=== PATIENT | male | born 1980 | race Caucasian/White ===

== ENCOUNTER 2019-02-02 12:19 | Inpatient (IN) | payer OTHER ==
[2019-02-02] MEDS ORDERED: NS 0.9% 1000 ML** 1,000 ML IV ONE (12:24)
[2019-02-02] MEDS ORDERED: LORazepam INJ* 2 MG/ML 1 ML VIAL IV PUSH ONE (12:33)
[2019-02-02] MEDS ORDERED: Lorazepam PYXIS KEY PRN ×2 (12:33→15:40)
[2019-02-02] MEDS ORDERED: Lorazepam PYXIS KEY ONE (12:39)
--- NOTE | 2019-02-02 12:40 | ED ---
Substance Abuse/Use - HPI Summary HPI Summary: Patient is a 38 y/o M presenting to [facility] via EMS under 941 status for Benadryl overdose. It is reported that the patient ingested approximately 100-150 tablets of 25 mg Benadryl. Time of ingestion is unknown. Patient's friend had called 911. It is reported that the patient had been making suicidal statements to his friends last evening, 02/01/19. This morning, 02/02/19, the patient had messaged his friends a picture of a pile of Benadryl tablets and stated that he had taken the amount of tablets featured in the photo. Some alcohol usage is reported as well. EMS reports that the patient has not vomited. EMS BG was 109, BPs of 140s/80s, and HR of 130s. Home medications and allergies are reviewed. Patient is a level 5 caveat secondary to AMS. - History Of Current Complaint Stated Complaint: OVERDOSE Hx Obtained From: EMS Hx From Patient Unobtainable Due To: Altered Mental Status - Patient is a level 5 caveat secondary to AMS. Onset/Duration of Drug/ETOH Abuse: Hours Ingestion History: Type/Name Of Drug - Benadryl, alcohol, Amount Ingested - 100- 150 tablets of 25 mg Benadryl, Approximate Time Of Ingestion - unknown Overdose Characteristics: Oral Character: Other - decreased responsiveness Associated Signs And Symptoms: Altered Mental Status, Intentional Ingestion, Other: - SI - Allergies/Home Medications Allergies/Adverse Reactions: Allergies Allergy/AdvReac Type Severity Reaction Status Date / Time No Known Allergies Allergy Verified 10/21/12 09:42 Home Medications: Home Medications Unobtainable 02/02/19 [History Confirmed 02/02/19] PMH/Surg Hx/FS Hx/Imm Hx Sensory History: Reports: Hx Contacts or Glasses Denies: Hx Legally Blind, Hx Deafness Opthamlomology History: Reports: Hx Contacts or Glasses Denies: Hx Legally Blind EENT History: Denies: Hx Deafness Psychiatric History: Reports: Hx Substance Abuse Denies: Hx Eating Disorder, Hx of Violent Episodes Against Others Infectious Disease History: No Infectious Disease History: Denies: Traveled Outside the [place] in Last 30 Days - Family History Known Family History: Positive: Unknown - Patient is a level 5 caveat secondary to AMS. - Social History Alcohol Use: Weekly Alcohol Amount: 2-3/day Substance Use Type: Reports: Cocaine, Marijuana Smoking Status (MU): Light Every Day Tobacco Smoker Review of Systems - ROS Summary Review of Systems Summary: Patient is a level 5 caveat secondary to AMS. Constitutional: Other - positive - overdose, Benadryl and alcohol overdose Negative: Vomiting Neurological: Other - positive - AMS Psychological: Other - positive - SI All Other Systems Reviewed And Are Negative: No - Comments Additional Review of Systems Comments: Patient is a level 5 caveat secondary to AMS. Physical Exam - Summary Physical Exam Summary: Constitutional: Well-developed, Well-nourished, Alert. (-) Distressed Skin: Warm, Axilla are dry HENT: Normocephalic; Atraumatic Eyes: Wide-eyed gaze with right nystagmus, pupils are 5 mm, equal, and reactive ; conjunctiva are normal Neck: Musculoskeletal ROM normal neck. (-) JVD, (-) Stridor, (-) Tracheal deviation Cardio: Tachycardia, Heart sounds normal; Intact distal pulses; Radial pulses are 2+ and symmetric. (-) Murmur Pulmonary/Chest wall: Effort normal. (-) Respiratory distress, (-) Wheezes, (-) Rales Abd: Soft, (-) tenderness, (-) Distension, (-) Guarding, (-) Rebound Musculoskeletal: (-) Edema Lymph: (-) Cervical adenopathy Neuro: Patient has a garbled speech that is incomprehensible. He is responsive to questions and moves all extremities spontaneously, patient is a level 5 caveat secondary to AMS Triage Information Reviewed: Yes Vital Signs On Initial Exam: Initial Vitals Temp Pulse Resp BP Pulse Ox 98.6 F 135 17 150/93 96 02/02/19 12:21 02/02/19 12:21 02/02/19 12:21 02/02/19 12:21 02/02/19 12:21 Vital Signs Reviewed: Yes Completion Of Physical Exam Limited Due To: Altered Mental Status, Level 5 Procedures - Sedation Patient Received Moderate/Deep Sedation with Procedure: No Diagnostics - Vital Signs Vital Signs Temp Pulse Resp BP Pulse Ox 02/02/19 12:21 98.6 F 135 17 150/93 96 - Laboratory Result Diagrams: 02/02/19 12:36 02/02/19 12:36 Lab Statement: Any lab studies that have been ordered have been reviewed, and results considered in the medical decision making process. - EKG 1230 Cardiac Rate: Tachycardia - rate of 128 BPM EKG Rhythm: Sinus Tachycardia Summary of EKG Findings: EKG showed sinus tachycardia with rate of 128 BPM, QRS of 98, QTc of 467. No STEMI. ED physician has reviewed and interpreted this EKG. 1322 Cardiac Rate: Tachycardia - rate of 100 BPM EKG Rhythm: Sinus Tachycardia Summary of EKG Findings: EKG showed sinus tachycardia with rate of 100 BPM, QRS of 101, QTc of 485. ED physician has reviewed and interpreted this EKG. 1446 Cardiac Rate: Tachycardia - rate of 104 BPM EKG Rhythm: Sinus Tachycardia Summary of EKG Findings: EKG showed sinus tachycardia with rate of 104 BPM, QRS of 96, QTc of 477. ED physician has reviewed and interpreted this EKG. Re-Evaluation - Re-Evaluation First Eval Re-Evaluation Time: 12:30 Comment: Poison Control, Ruth [place], was contacted. Benzodiazepine and bicarb if QRS is greater than 100 recommended. Second Eval Re-Evaluation Time: 13:22 Comment: Second EKG showed QRS widening from 98 to 101. Bicarb to be given. Third Eval Re-Evaluation Time: 15:48 Comment: Poison control called back, they recommend BMP, fluids, and benzodiazepines if patient is restless. Course/Dx - Course Course Of Treatment: Patient is here with intentional overdose of Benadryl. Patient also endorses alcohol use. Patient is also altered upon arrival but does look at you and asking him questions and sometimes gives answers. Patient was tachycardic which improved with IV fluids and Ativan. Patient had initial QRS which was less than 100 but then creeped up so a amp of bicarbonate was given. Patient is monitored in the ED and his mental status. Patient is admitted to the ICU for further workup and monitoring. - Diagnoses Provider Diagnoses: Overdose or poisoning by antihistamine or antiemetic drug, Alcohol overdose, Suicide attempt - Physician Notifications Discussed Care Of Patient With: Isaiah Comer Time Discussed With Above Provider: 14:43 Instructed by Provider To: Other - Patient's case was discussed with Dr. Comer, ICU, Dr. Comer accepts for admission. - Critical Care Time Critical Care Time: 30-74 min - 35 minutes CCT Discharge ED - Sign-Out/Discharge Documenting (check all that apply): Patient Departure - admit - Discharge Plan Condition: Fair Disposition: ADMITTED TO [facility] - Billing Disposition and Condition Condition: FAIR Disposition: Admitted to [facility] - Attestation Statements Document Initiated by Suzette: Yes Documenting Scribe: ISI GOMEZ Provider For Whom Suzette is Documenting (Include Credential): BELKIS GOMEZ MD Scribe Attestation: ISI Pastrana, scribed for BELKIS GOMEZ MD on 02/02/19 at 1619. Scribe Documentation Reviewed: Yes Provider Attestation: The documentation as recorded by the [email or web address] zazueta accurately reflects the service I personally performed and the decisions made by me, BELKIS GOMEZ MD Status of Scribe Document: Viewed
[2019-02-02 12:59] LABS: ABS Basophils 0.1 10^3/ul (0-0.2); ABS Eosinophils 0.3 10^3/ul (0-0.6); ABS Lymphocytes 3.6 10^3/ul (1.0-4.8); ABS Monocytes 0.9 10^3/ul (0-0.8); ABS Neutrophils 8.2 10^3/ul (1.5-7.7); Eosinophil % 2.2 %; Hematocrit 43 % (42-52); Lymphocyte % 27.6 %; Mean Corpuscular HGB Conc 35 g/dL (31-36); Mean Corpuscular Hemoglobin 30 pg (27-31); Mean Corpuscular Volume 87 fL (80-94); Mean Platelet Volume 7.1 fL (7.4-10.4); Platelet Count 293 10^3/uL (150-450); Red Blood Count 4.95 10^6 /uL (4.18-5.48); Red Cell Distribution Width 13 % (10-15); White Blood Count 13.1 10^3/uL (3.5-10.8)
[2019-02-02] MEDS ORDERED: Sodium Bicarbonate 8.4%* 50 ML SYRINGE IV ONE (13:22)
[2019-02-02 13:48] LABS: ALT 29 U/L (7-52); AST 19 U/L (13-39); Albumin 4.5 g/dL (3.2-5.2); Albumin/Globulin Ratio 1.6 (1-3); Alkaline Phosphatase 51 U/L (34-104); Anion Gap 9 mmol/L (2-11); BUN/Creatinine Ratio 12.8 (8-20); Blood Urea Nitrogen 12 mg/dL (6-24); CO2 Carbon Dioxide 25 mmol/L (22-32); Calcium 9.1 mg/dL (8.6-10.3); Chloride 108 mmol/L (101-111); Creatine Kinase 116 U/L (10-223); EGFR African American 108.1 (>60); EGFR Non-African American 89.3 (>60); Globulin 2.8 g/dL (2-4); Glucose 86 mg/dL (70-100); Potassium 3.5 mmol/L (3.5-5.0); Sodium 142 mmol/L (135-145); Total Protein 7.3 g/dL (6.4-8.9)
[2019-02-02 13:57] LABS: Acetaminophen < 15 mcg/mL; Alcohol 244 mg/dL (<10); Salicylate < 2.50 mg/dL (<30)
[2019-02-02 14:07] LABS: Urine Benzodiazepine Screen None Detected (None Detect); Urine Opiates Screen None Detected (None Detect)
[2019-02-02] MEDS ORDERED: LORazepam INJ* 2 MG/ML 1 ML VIAL IV PUSH PRN (15:40)
[2019-02-02] MEDS ORDERED: Metoprolol Tartrate IV* 1 MG/ML 5 ML VIAL IV PRN (15:41)
[2019-02-02] MEDS ORDERED: Acetaminophen TAB* 325 MG PO PRN (15:59)
[2019-02-02] MEDS ORDERED: Thiamine INJ* 100 MG, Folic Acid IV* 1 MG, Multiple Vitamin IV ADULT* 10 ML in NS 0.9% ... IV ONE (15:59)
[2019-02-02 16:36] LABS: Potassium 3.8 mmol/L (3.5-5.0)
[2019-02-02 16:42] LABS: BUN/Creatinine Ratio 11.1 (8-20); EGFR African American 128.4 (>60); EGFR Non-African American 106.1 (>60)
[2019-02-02 17:22] LABS: Urine Appearance Clear; Urine Bilirubin Negative (Negative); Urine Blood 1+ (Negative); Urine Color Yellow; Urine Glucose Negative (Negative); Urine Ketones Negative (Negative); Urine Nitrite Negative (Negative); Urine Protein Negative (Negative); Urine Specific Gravity 1.013 (1.010-1.030); Urine Urobilinogen Negative (Negative)
[2019-02-02 17:23] LABS: Urine Bacteria Absent (Absent); Urine Red Blood Cell Trace(0-2/hpf) (Absent); Urine White Blood Cell Trace(0-5/hpf) (Absent)
[2019-02-02] MEDS: NS 0.9% 1000 ML** 1,000 ML IV SCH (17:45)
--- NOTE | 2019-02-02 19:27 | HP ---
ADMISSION HISTORY AND PHYSICAL: DATE OF ADMISSION: 02/02/19 PRIMARY CARE PROVIDER: Unknown. ATTENDING FOR THIS ADMISSION: Dr. Isaiah Comer, Lens Inserter* (DICTATED BY BASILIO RODRIGUEZ,PALOMA) HISTORY OF PRESENT ILLNESS: Mr. Schreiber is a 38-year-old male patient , who presents to the emergency department with EMS services on an involuntary basis with report of a Benadryl and alcohol overdose. Per the report from EMS, the patient ingested approximately 100 to 150 tablets of 25 mg of Benadryl. Time of ingestion is unknown. Apparently, the patient had been missing since 11 p.m. last night. The patient had been reportedly making suicidal statements to his friends in the evening prior. In the morning, the patient had messaged his friends again with pictures of pills and a pile of tablets stating that he had taken significant amount of the tablets that were pictured in the photo. The patient ultimately had been located by police and the EMS and he was brought to the emergency department for evaluation. In the ED, the patient is noted to be tachycardic and he is protecting his airway. He is not able to answer any questions verbally. His speech is incoherent. He is unable to recount any of the happenings of the last 24 hours. The report is primarily taken from EMS at the scene and from the ED notes. Level 5 caveat is the patient is obtunded and unable to respond to questions at this time. PAST MEDICAL HISTORY: Unable to obtain secondary to extremis. PAST SURGICAL HISTORY: Unable to obtain, see above. MEDICATIONS FROM HOME: Unable to obtain, see above. FAMILY HISTORY: Unable to obtain, as above. SOCIAL HISTORY: Per the record, it appears that the patient has had pervious psychiatric hospitalization for suicidal ideation and polysubstance abuse. Further than that is unknown. REVIEW OF SYSTEMS: Again, unable to obtain secondary to altered mental status. PHYSICAL EXAMINATION GENERAL: The patient is impaired, but in no acute distress. VITAL SIGNS: Blood pressure 136/94, heart rate 107, respiratory rate 21 to 25, O2 saturation 96% on room air with a temperature of 98.8. HEENT: The patient is atraumatic, normocephalic. Pupils are equal, sluggish. He does appear to have a wide set gaze, right-sided nystagmus. He does appear to drift off and is not closing his eyes even though he does appear to be asleep. NECK: Supple, nontender. No JVD noted. No carotid bruits auscultated. LUNGS: Clear bilaterally to auscultation with no wheezing, rhonchi, or rales. CARDIOVASCULAR: S1, S2 present. Rate is tachycardic. Rhythm is regular. No murmurs, gallops, or rubs noted. ABDOMEN: Soft, nontender, nondistended. Positive bowel sounds in all 4 quadrants. : Deferred. MUSCULOSKELETAL: There is no clubbing, no cyanosis, no pedal edema. He has +2 distal pulses. NEUROLOGIC: The patient does seem to have a startle response. He is protecting his airway. He has an intact gag reflex. He is spontaneously moving extremities. Speech is garbled. Although, he did take a deep inhalation when I asked him to breathe during his physical exam, he was able to follow the command to inspire and exhale when requested. PSYCHIATRIC: He is otherwise not aggressive or inappropriate at this time, but does appear to be lethargic. SKIN: Warm, dry, pale, and intact. DIAGNOSTIC STUDIES/LAB DATA: WBCs 13.1, RBCs 4.95, hemoglobin 15.0, hematocrit 43, platelets 293. Sodium 142, potassium 3.8, chloride 108, CO2 of 25, anion gap 9, BUN 12, creatinine 0.94, GFR 89.3, glucose 86, calcium 9.1. Bilirubin 0.30, AST 19, ALT 29, alk phos 51. Total creatine kinase 116. Total protein 7.3, albumin 4.5, globulin 2.8, albumin/globulin ratio 1.6. Venous blood gas; pH 7.38, pCO2 of 43, pO2 of 39, bicarb 24.2, venous saturation 71.5% , base excess of 0.0. Toxicology report is presumptive positive for cannabinoids , serum alcohol is 244, acetaminophen level is less than 15, salicylates are less than 2.50, no other illicit substances noted in his urine tox screen. Imaging: There was no current imaging available. EKGs: Most recent EKG at 1405 shows sinus tachycardia, does appear to possibly have some left ventricular hypertrophy, borderline prolonged QT interval, QT interval is 475 milliseconds. EKG at presentation at 1225 this afternoon did appear to have some nonspecific T-wave abnormalities in the inferior leads II, II and aVF; some flattening of the T-wave in those inferior leads; also sinus tachycardia in the rate of 110s. No further studies are available. IMPRESSION: Mr. Schreiber is a 38-year-old male patient, who presents in the emergency department today with EMS services after intentional ingestion of Benadryl and alcohol with intention of what is likely suicidal ideation with statements to friends prior to such event. PLAN: The patient has been admitted to the ICU. 1. Intentional overdose. Poison Control Center has been contacted. At this time, Poison Control has recommended fluids and repeat electrolytes. His electrolytes are currently within normal limits. We will repeat CMP in the morning. They are also recommending benzodiazepines for any restlessness given the diphenhydramine overdose. The patient is currently on a one-to-one watch. Psychiatry has been consulted. Although, his alcohol level and his altered mental status would preclude him from receiving psychiatric evaluation, when the patient is more awake, he will be seen by Psychiatry. Being that the patient had some minor EKG changes, we will do daily EKGs and continue the patient on telemetry. He will also have EKGs for any further changes noted while he is on tele. 2. Alcohol intoxication and likely polysubstance abuse. Again, Psychiatry has been consulted. At this time, he will be on q.2 hour benzodiazepine administration for restlessness and/or signs of alcohol withdrawal. At this time, I do not expect him to be withdrawing any time soon because his alcohol level is still significantly elevated. I will order 1 banana bag now and start him on thiamine and folic acid tomorrow. Continue him on IV fluids. He is currently not clear to be eating. We will do bedside swallow evaluation when he is more awake. We will also start him on p.r.n. metoprolol. He had some diastolic hypertension at admission. He will get Lopressor 5 mg IV q.6 hours as needed for hypertension, Tylenol as needed for fever or mild pain. He does have mildly elevated white count, which is likely reactive. He does not appear to be infected. I will do a chest x-ray on the patient only because he may have had some unknown downtime which we are unaware of and he is high risk for aspiration. He is currently afebrile, but we will obtain chest x-ray as a precaution. Follow labs in the morning. We will also add magnesium and phosphorus tomorrow and continue follow CBC and CMP. 3. Diet: NPO for now, advance as tolerated. 4. DVT Risk Assessment: He is moderate risk given his overdose and current obtunded state and should have SCDs. He should be out of bed and ambulating as soon as possible. 5. Code status: He is a full code. Next of kin: Per the ED, he does not have family close by. Person to notify is his girlfriend, Joseline Logan, her phone number is [phone]. The rest of the patient's course will be determined by further diagnostics, laboratories, and any other input from other providers as warranted during this admission. TIME SPENT: Critical care time spent 75 minutes on admission planning. BASILIO RODRIGUEZ NP [id number]/CPS #: [id number] LAUREEN
[2019-02-03] MEDS: NS 0.9% 1000 ML** 1,000 ML IV SCH (04:32)
[2019-02-03 04:56] LABS: ABS Basophils 0.1 10^3/ul (0-0.2); ABS Eosinophils 0.3 10^3/ul (0-0.6); ABS Lymphocytes 3.2 10^3/ul (1.0-4.8); ABS Neutrophils 5.5 10^3/ul (1.5-7.7); Eosinophil % 2.8 %; Hematocrit 39 % (42-52); Hemoglobin 13.7 g/dL (14.0-18.0); Lymphocyte % 31.6 %; Mean Corpuscular HGB Conc 35 g/dL (31-36); Mean Corpuscular Hemoglobin 31 pg (27-31); Mean Corpuscular Volume 87 fL (80-94); Platelet Count 248 10^3/uL (150-450); Red Blood Count 4.48 10^6 /uL (4.18-5.48); Red Cell Distribution Width 13 % (10-15)
[2019-02-03 05:16] LABS: Albumin 3.7 g/dL (3.2-5.2); Albumin/Globulin Ratio 1.5 (1-3); BUN/Creatinine Ratio 10.4 (8-20); Calcium 8.4 mg/dL (8.6-10.3); EGFR African American 105.5 (>60); EGFR Non-African American 87.2 (>60); Globulin 2.5 g/dL (2-4); Magnesium 1.6 mg/dL (1.9-2.7); Phosphorus 3.8 mg/dL (2.5-5.0); Potassium 3.7 mmol/L (3.5-5.0); Total Bilirubin 0.6 mg/dL (0.2-1.0); Total Protein 6.2 g/dL (6.4-8.9)
[2019-02-03 06:05] LABS: TSH (Thyroid Stimulating Horm) 5.61 mcIU/mL (0.34-5.60)
[2019-02-03] MEDS: Multivitamins/Minerals TAB PO SCH (09:45)
[2019-02-03] MEDS: Thiamine TAB* 100 MG TAB PO SCH (09:45)
[2019-02-03] MEDS: Folic Acid TAB* 1 MG PO SCH (09:45)
[2019-02-03] MEDS ORDERED: Magnesium Sulfate 2 GM IV* 2 GM/50 ML BAG IVPB ONE (11:08)
--- NOTE | 2019-02-03 12:42 | PN ---
Subjective Date of Service: 02/03/19 Interval History: Patient seen and examined this morning. He is awake and in no distress. He denies fever or chills, no headache, no cough, no SOB. No weakness. He is hungry and would like to ambulate. Discussed events leading up to hospitalization, most of which he does not remember. He is aware of drinking and taking "handfuls" of benadryl, but palomares not recollect more than that. He is not feeling suicidal at this time. He denies pain. Objective Active Medications: Acetaminophen (Tylenol Tab*) 650 mg PO Q4H PRN PRN Reason: MILD PAIN or TEMP > 100.4 Folic Acid (Folvite Tab*) 1 mg PO DAILY [facility] Last Admin: 02/03/19 09:45 Dose: 1 mg Lorazepam (Ativan Inj*) 1 mg IV PUSH Q2H PRN PRN Reason: agitation or withdrawal Metoprolol Tartrate (Lopressor Iv*) 5 mg IV Q6H PRN PRN Reason: SBP>165 or DBP>90 Miscellaneous (Ativan Pyxis Chavira) 1 ea N/A .ATIVAN IV CHAVIRA PRN PRN Reason: PYXIS CHAVIRA Multivitamins/Minerals (Theragran/Minerals Tab*) 1 tab PO DAILY [facility] Last Admin: 02/03/19 09:45 Dose: 1 tab Naltrexone HCl (Naltrexone Tab*) 50 mg PO DAILY [facility]; Protocol Sertraline HCl (Zoloft*) 25 mg PO DAILY [facility] Thiamine HCl (Vitamin B-1 Tab*) 100 mg PO DAILY [facility] Last Admin: 02/03/19 09:45 Dose: 100 mg Vital Signs - 8 hr 02/03/19 02/03/19 02/03/19 05:00 05:30 06:00 Temperature Pulse Rate 64 64 64 Respiratory 19 20 19 Rate Blood Pressure 127/90 129/84 137/76 (mmHg) O2 Sat by Pulse 96 97 95 Oximetry 02/03/19 02/03/19 02/03/19 06:30 07:00 07:30 Temperature Pulse Rate 65 65 80 Respiratory 19 10 21 Rate Blood Pressure 129/94 129/88 151/99 (mmHg) O2 Sat by Pulse 96 96 99 Oximetry 02/03/19 02/03/19 02/03/19 08:00 08:30 09:00 Temperature 99.1 F Pulse Rate 72 73 65 Respiratory 14 21 14 Rate Blood Pressure 139/91 154/89 143/87 (mmHg) O2 Sat by Pulse 97 97 95 Oximetry 02/03/19 02/03/19 02/03/19 10:00 10:55 10:56 Temperature Pulse Rate 92 97 Respiratory 18 18 19 Rate Blood Pressure 149/93 (mmHg) O2 Sat by Pulse 97 96 Oximetry 02/03/19 02/03/19 02/03/19 11:00 11:42 11:43 Temperature 99 F Pulse Rate 105 Respiratory 20 Rate Blood Pressure 130/95 (mmHg) O2 Sat by Pulse 96 Oximetry Oxygen Devices in Use Now: None Appearance: alert, NAD Eyes: No Scleral Icterus, PERRLA Ears/Nose/Mouth/Throat: Mucous Membranes Moist Neck: NL Appearance and Movements; NL JVP, Trachea Midline Respiratory: Symmetrical Chest Expansion and Respiratory Effort, Clear to Auscultation Cardiovascular: NL Sounds; No Murmurs; No JVD, RRR, No Edema Abdominal: NL Sounds; No Tenderness; No Distention, No Hepatosplenomegaly Extremities: No Edema, No Clubbing, Cyanosis Skin: No Rash or Ulcers Neurological: Alert and Oriented x 3, NL Gait, NL Muscle Strength and Tone Lines/Tubes/Other Access: Clean, Dry and Intact Aquino - clear yellow urine Nutrition: Taking PO's Result Diagrams: 02/03/19 04:45 02/03/19 04:45 Microbiology and Other Data: Microbiology 02/02/19 16:19 Nasal Screen MRSA (PCR) - Final Nasal Mrsa Not Detected Assess/Plan/Problems-Billing Assessment: This is a 38 year old male with hx of ETOH and substance abuse disorder that presented to the ED last evening after intentional overdose of benadryl and alcohol. - Patient Problems (1) Overdose Code(s): T50.901A - POISONING BY UNSP DRUG/MEDS/BIOL SUBST, ACCIDENTAL, INIT SNOMED Code(s): 76809978 Comment: - Reportedly took >100 tablets of benadryl, but patient does not remember, states it may have been a "handful" mixed with copious amounts of alcohol - Per poison control, monitored for 24 hours on telemetry and followed BMP today - Lytes repleted, mag low this morning - Repeat EKG today is normal - Was retaining urine at admission, aquino removed today, voiding freely and adequately - Had reactive leukocytosis at admission which is resolved. No need to complete CXR - Diet advanced to regular - Psychiatry consult appreciated, will voluntarily go to [facility] as per Dr. Lantigua (2) Alcohol abuse Code(s): F10.10 - ALCOHOL ABUSE, UNCOMPLICATED SNOMED Code(s): 41426934 Comment: - ETOH BAL was 244 at admission - s/p 1 banana bag last evening - Continue oral supplementation of thiamine, MVI and folic acid - Naltrexone started today as per Dr. Lantigua - Referral to SW and psychiatry - No evidence of withdrawal symptoms (3) Substance induced mood disorder Code(s): F19.94 - OTH PSYCHOACTIVE SUBSTANCE USE, UNSP W MOOD DISORDER SNOMED Code(s): 786441827 Comment: - Started on Zoloft as per Dr. Lantigua - Plan for [facility] admission (4) Suicidal ideation Code(s): R45.851 - SUICIDAL IDEATIONS SNOMED Code(s): 2314689 Comment: - Suicidal statements by texts per EMS/ER notes - clear by psychiatry to be off 1:1 monitor - Plan for [facility] transfer when bed available (5) Patient is full code Code(s): Z78.9 - OTHER SPECIFIED HEALTH STATUS SNOMED Code(s): 026341285 (6) DVT prophylaxis Code(s): Z29.9 - ENCOUNTER FOR PROPHYLACTIC MEASURES, UNSPECIFIED SNOMED Code( s): 118814537 Comment: - SCDs and ambulate Status and Disposition: Medically cleared for transfer to [facility]. Per unit, no male bed availability at this time. Will be downgraded to medical floor until he can be transferred to [facility].
[2019-02-03] MEDS: Naltrexone TAB* 50 MG TAB PO SCH (13:04)
[2019-02-03] MEDS: Sertraline* 25 MG TAB PO SCH (13:04)
--- NOTE | 2019-02-03 13:05 | CONS ---
CONSULTATION REPORT/PSYCHIATRIC HISTORY AND PHYSICAL: DATE OF ADMISSION: 02/02/11 DATE OF CONSULT: 02/03/19 ATTENDING CLINICIAN: Mariana Carvalho NP CONSULTING PHYSICIAN: Dr. Onesimo Lantigua. REASON FOR CONSULT: Intentional overdose on Benadryl and alcohol in suicide attempt. SUBJECTIVE HISTORY: Nick Schreiber is a 38-year-old white male with a history of signi ficant alcohol dependence as well as 2 separate psychiatric admissions for alcohol-induced mood disor adrianne, who is currently hospitalized on the ICU following an intentional suicidal overdose on approxima tely 100 capsules of 25 mg [id number]-lhehzln Benadryl in addition to drinking a large amount of alcoho l. 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 He also indicates that he has been having interpersonal and relational difficulties with his girlfriend of the last 2-1/2 years whose name is Joseline, who is currently present in his ICU room. The patient indicates that the night prior to ad mission he stopped taking all phone calls and posted some photographs on social media of the Benadryl pill bottle with a cryptic message to the effect that he would end his own life. Friends were abebe rned enough to call the police, who found him incapacitated in his apartment and brought him immediat moshe to the emergency room. Upon presentation, he was obtunded and difficult to arouse and could not provide history. I understand that he continued to be somewhat confused through most of the night, b ut is much more clear upon awakening this morning. When I entered the room, I asked to speak with him privately and he indicates that prior to taking the overdose he was feeling down about his life and said "I just wanted to go to sleep like forever." He indicates that he has difficulty trusting his g irlfriend and often feels like she is cheating on him even though he has no evidence of this. He had been receiving outpatient services at [facility] until approximately a year ago and his most recent alcoho l consumption patterns amount to drinking a 6-pack of beer 2 to 3 times per week. He does endorse de pression and anxiety and states that prior to the overdose he had reached out to [facility] here in [place] and was placed on a waiting list for services. He is open to the idea of anxiolytic medication as well as some type of medication to curb his cravings for alcohol. When I s poke with Joseline, she corroborates his history and indicates that his mistrust of her is limited to their relationship and she has not observed paranoia from other areas of his life. The patient is w illing to get treatment at this time both for mental health problems as well as substance abuse issue s. PAST PSYCHIATRIC HISTORY: The patient's first admission on the BSU was in 2012 with suicidal ideatio ns. He was started on an antidepressant that he believes was Celexa, which he did not tolerate well due to stomach discomfort and cognitive dissonance. Later, he was admitted to the BSU in 2014 after attempting to shoot himself with a nail gun. That attempt was unsuccessful and he was admitted and p laced on Wellbutrin, which he states was ineffective. Since then, he did see a private therapist in the community, but had difficulty paying [id number], stating that the clinician did not accept his insurance. The patient denies any history of abuse or neglect growing up. He denies any history of traumatic brain injury. He denies any history of homicidality or violence towards others. The only prior suicide attempt that he will admit to is the 2014 incident with the nail gun. SUBSTANCE ABUSE HISTORY: Significant for chronic almost lifetime abuse of alcohol. He remembers snea jose luis into adoptive parents' alcohol supply at home and stealing beer and other spirits to consume whi le a young adolescent and teenager. These patterns worsened. He denies ever having been in an inpat ient rehab scenario, although he does have a history of multiple DWIs for which he has lost his drive r's license. Remotely, he had some abuse of cocaine and crystal methamphetamine, although he denies these over the past 10 years. He also smokes cannabis somewhat infrequently and I note that his urin e drug screen is positive for cannabinoids. The patient's serum alcohol level upon admission was maria teresa sly elevated at 244. PAST MEDICAL HISTORY: Noncontributory. MEDICATIONS: None. FAMILY HISTORY: Uncertain as the patient is adopted and does not know his biological family. SOCIAL HISTORY: The patient was born and raised in [place], [place] near [place] where he was adopted to a family where he had 3 adoptive brothers and 1 adoptive sister. His adoptive father has , but his adoptive mother still is alive in the [facility]. The patient was able to gr aduate high school with good grades and later had some college, but never completed a college degree. He was once for 6 years and has 2 children through his ex- who are aged 10 and 13, but w ith whom he has no long term contact or visitation. 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 He currently h as his own apartment, but is late on rent. He is in a relationship with a girlfriend of 2-1/2 years who is supportive. He identifies as spiritual, but confucianism in terms of orthodoxy. Legal hi story is significant for multiple DWIs with loss of license and he was on probation for this at one [facility] in the past. MENTAL STATUS EXAM: The patient is a middle-aged white male with clean haircut, who appears to be we ll groomed, dressed in patient gown, sitting upright with good eye contact. It is easy to establish a rapport with him. Speech has a normal rate, tone, and volume. Mood is depressed with a somewhat a nxious affect. Thought process is linear and goal directed. Thought content is significant for his desire to receive substance abuse and mental health services. He is currently denying further suicid al ideation and he also denies homicidality. He denies auditory or visual hallucinations. Insight a nd judgment appeared to be fair given his willingness to receive treatment. Cognitively, he is awake and alert with what would appear to be an average intellect. DIAGNOSES: As follows: Ashby I: Alcohol-induced depressive disorder, alcohol use disorder. Ashby II: Deferred. IMPRESSION: The patient is a 38-year-old white male with a history of chronic alcohol abuse , who arrived via EMS after police responded to a missing person's report at his apartment and found him obtunded and unable to respond to questions. He was found to be intoxicated in our emergency rachael m with an alcohol level of 244 and the patient's account is that he took close to 100 tablets of 25 m g strength Benadryl in a suicide attempt. At this time, I feel the patient would benefit from inpati ent behavioral health services; however, there are no beds on the behavioral science unit. RECOMMENDATIONS TO PRIMARY TEAM: Psychiatry does not feel that the patient is an imminent danger to himself and we will discontinue the one-to-one. I would like to start him on a low dose antidepressa nt therapy with sertraline 25 mg daily as well as naltrexone for alcohol use disorder at the dose of 50 mg daily. Psychiatry will continue to follow the patient closely and perhaps a bed will be openin g up on the BSU tomorrow so that the patient can be transferred. Certainly, substance abuse and ment al health services in the community need to be put in place prior to the patient's discharge. Thank you for the consult request. [id number]/[facility] #: [id number]
[2019-02-04] MEDS: Folic Acid TAB* 1 MG PO SCH (08:52)
[2019-02-04] MEDS: Multivitamins/Minerals TAB PO SCH (08:52)
[2019-02-04] MEDS: Naltrexone TAB* 50 MG TAB PO SCH (08:53)
[2019-02-04] MEDS: Thiamine TAB* 100 MG TAB PO SCH (08:53)
[2019-02-04] MEDS: Sertraline* 25 MG TAB PO SCH (08:53)
[2019-02-04] MEDS ORDERED: Al Hydrox/Mg Hydrox/Simet LIQ* 30 ML UDC PO PRN (10:43)
--- NOTE | 2019-02-04 11:39 | CONSULT ---
Identification - Patient Identification Reason for Psychiatric Consultation: Suicidal Ideation -: Patient is a 38 year old, M admitted on 02/02/19. - MHU Identification Employment Status: Unemployed Hx Psychiatric Hospitalization: Yes History - Objective HPI: Al is seen for psychiatric follow up on the [address] [place] [address] unit where he is complaining of dizziness and "intense depression" symptoms after taking his initial dose of naltrexone last night. He acknowledges that this could be also attributable to alcohol withdrawal or continued toxic effects of his Benadryl overdose. He denies SI and states that he has a lead for potential employment on Friday (02/08). He is agreeable with transfer downstairs to the BSU pending bed availability. Exam Appearance: Well Developed/Nourished Hygiene: Normal Grooming: Well Kept Psychomotor Activities: Normal Attitude and Relatedness: Cooperative Eye Contact: Good - Speech Quality: Unpressured Latencies: Normal Quantity: Appropriate Patient's Decription of Mood: "Anxious" Observed Affect: Constricted Affect Consistent with: Dysphoria Patient's Thought Process: Coherent Thought Content: No Passive Wish, No Suicidal Planning, No Homicidal Ideation, No Paranoid Ideation Experiencing Hallucinations: No, Sensorium is Clear Type of Hallucinations: Visual: No, Auditory: No, Command: No Level of Consciousness: Alert Orientation: Yes Intact, Yes Orientated to Time, Yes Orientated to Place, Yes Orientated to Person Impulse Control: Tenuous Insight and Judgement: Fair Impression - Impression Clinical Impression: 38 y.o. , white male with a history of alcohol dependence and two previous BSU admissions for alcohol induced depressive disorder currently admitted to the Hospitalist service following an intentional, suicidal overdose on alcohol and 100 capsules of 25mg strength OTC Benadryl. Inpatient DSM-V Dx: F10.24 Merits Inpatient Hospitalization: Yes BSU: Problem List - Patient Problems (1) Alcohol-induced depressive disorder with moderate or severe use disorder Current Visit: Yes Status: Acute Priority: High Code(s): F10.24 - ALCOHOL DEPENDENCE WITH ALCOHOL-INDUCED MOOD DISORDER; F32.89 - OTHER SPECIFIED DEPRESSIVE EPISODES SNOMED Code(s): 78514008 Plan - Treatment Plan Treatment Plan: We have started trials of sertraline 25mg PO qday and naltrexone 50mg PO qday. He complains of dizziness from naltrexone and we will discontinue this for now. He is pending transfer downstairs to the BSU, hopefully later today, on voluntary (9.13) status. Psychiatry will then take over his care. Continued Medication Management: Start Medication Medications: Current Medications Acetaminophen (Tylenol Tab*) 650 mg PO Q4H PRN PRN Reason: MILD PAIN or TEMP > 100.4 Al Hydrox/Mg Hydrox/Simethicone (Maalox Plus*) 30 ml PO Q4H PRN PRN Reason: INDIGESTION Folic Acid (Folvite Tab*) 1 mg PO DAILY [facility] Last Admin: 02/04/19 08:52 Dose: 1 mg Multivitamins/Minerals (Theragran/Minerals Tab*) 1 tab PO DAILY [facility] Last Admin: 02/04/19 08:52 Dose: 1 tab Sertraline HCl (Zoloft*) 25 mg PO DAILY [facility] Last Admin: 02/04/19 08:53 Dose: 25 mg Thiamine HCl (Vitamin B-1 Tab*) 100 mg PO DAILY [facility] Last Admin: 02/04/19 08:53 Dose: 100 mg - Discharge Plan Discharge Plan: Inpatient Hospitalization
--- NOTE | 2019-02-04 16:29 | DS ---
CC: Dr. Lantigua * DISCHARGE SUMMARY: DATE OF ADMISSION: 02/02/19 DATE OF ANTICIPATED DISCHARGE: 02/04/19 PRIMARY CARE PROVIDER: None. DISPOSITION AT DISCHARGE: To mental health unit at [facility]. CONDITION ON DISCHARGE: Stable. DISCHARGE DIAGNOSES: 1. Benadryl overdose. 2. Alcohol abuse. 3. Depression. MEDICATIONS AT DISCHARGE: Include: 1. Zoloft 25 mg daily. 2. Thiamine 100 mg daily. 3. Folic acid 1 mg daily. LABORATORY DATA AND STUDIES PERFORMED DURING THE HOSPITAL STAY: Included on 01/12, white blood cell count of 10.3, hemoglobin of 13.7, hematocrit of 39, and platelets of 248. Sodium 136, potassium 3.7, chloride 103, carbon dioxide 25, BUN 10, creatinine 0.96. TSH was slightly high at 5.61. Liver function tests were otherwise unremarkable. CONSULTATIONS DURING THE HOSPITAL STAY INCLUDED: Dr. Lantigua from Psychiatry. HOSPITALIZATION COURSE: Nick Navarro is a 38-year-old male with history of depression and alcohol abuse with history of psychiatric admissions for alcohol induced mood disorder, who took approximately 100 capsules of 25 mg of over-the- counter Benadryl and drank a lot of alcohol in an attempt at suicide. 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 The patient stayed in the intensive care unit and did very well. He was transferred out of ICU on 02/03/19 and currently is on medical floor. The patient was treated with naltrexone for couple of days, but today in the morning he felt very jittery after taking it, and after discussion with Dr. Lantigua, this is going to be discontinued. The patient agreed to voluntary admission to mental health unit and this is going to be carried on whenever bed is available at our mental health unit. This dictation is performed in advance of his time of discharge. PHYSICAL EXAMINATION: At the time of discharge, blood pressure of 122/67, heart rate of 68 and regular, respiratory rate 20, oxygen saturation 98% on room air, temperature 97.7. General: The patient is a very pleasant 38-year- old male who is in no acute distress, alert, awake, and oriented x3. HEENT: Head: Atraumatic, normocephalic. Eyes: Pupils are equal, reactive to light and accommodation. Oropharynx is clear. Mucosa moist. Neck: Supple. No JVD. No bruits bilaterally. Cardiovascular: Regular rate and rhythm. No murmur. Respiratory: Clear to auscultation bilaterally. Abdomen: Soft, nontender. Bowel sounds are present in all 4 quadrants. Extremities: There is no edema. Pulses are +2 bilaterally. No clubbing or cyanosis. On neuro evaluation, speech is clear. Cranial nerves II through XII grossly intact. Motor strength is 5/5. Gait steady. Please note that this is a short summary of the patient's hospital stay. Please refer to further medical records for details. TIME SPENT: Approximately 35 minutes was spent on the patient's discharge. [id number]/[facility] #: [id number] [facility]ITAL[facility]ila
[2019-02-05 07:08] LABS: HDL Cholesterol 38.3 mg/dL
[2019-02-05] MEDS: Sertraline* 25 MG TAB PO SCH (09:10)
[2019-02-05] MEDS: Multivitamins/Minerals TAB PO SCH (09:11)
[2019-02-05] MEDS: Thiamine TAB* 100 MG TAB PO SCH (09:11)
[2019-02-05] MEDS: Folic Acid TAB* 1 MG PO SCH (09:11)
--- NOTE | 2019-02-05 13:29 | PN ---
Subjective - Subjective Date of Service: 02/05/19 Service Type: [id number] Hosp care 15 min low complexity Subjective: Nick has transitioned well to the BSU so far after arriving here this morning from the 4th floor medical service. He reports feeling a little sedated and wonders if this is from the sertraline that was recently started. At any rate, he denies SI and was hopeful for discharge home today, although this request is not gratified. He is future-oriented, talking about starting therapy. "The thing is, I know the work that I have to do on myself. Whats really gotten in the way is my drinking." He is open to both MH and substance abuse referrals. He notes that he has been offered work and is hopeful about resolving his financial issues and getting caught up on back payment for rent. He is calm and cooperative with slightly anxious affect. Objective - General Observations Appearance: Well Groomed Appears Stated Age: Yes Stature: WNL Posture: WNL Eye Contact: Average Behavior/Activity: WNL - Interaction Observations Attitude Towards Examiner: Cooperative Stated Mood: Anxious Affect: Restricted Speech Pattern/Tone: Clear, Appropriate, Normal Volume Thought Process: Coherent Perception: WNL Thought Content: WNL Hallucination Type: None Delusion Type: None - Cognitive Function Orientation: A&O x 4 Level of Consciousness: Awake Cognition: WNL Estimated Intelligence: Normal Insight: WNL Judgment Within Normal Limits: Yes - Medication Compliance Cooperative with Inpatient Medication Regimen: Yes - Group Participation Participates in Group Activities: Yes Assessment - Assessment Merits Inpatient Hospitalization: For Immediate Safety, For Stabilization Inpatient DSM-V Dx: F10.24 Clinical Impression: 38 y.o. , white male with a history of alcohol dependence and two previous BSU admissions for alcohol induced depressive disorder transferred from the Hospitalist service following medical stabilization of an intentional, suicidal overdose on alcohol and 100 capsules of 25mg strength OTC Benadryl. BSU: Problem List - Patient Problems (1) Alcohol-induced depressive disorder with moderate or severe use disorder Current Visit: Yes Status: Acute Priority: High Code(s): F10.24 - ALCOHOL DEPENDENCE WITH ALCOHOL-INDUCED MOOD DISORDER; F32.89 - OTHER SPECIFIED DEPRESSIVE EPISODES SNOMED Code(s): 92293924 Plan - Plan Treatment Plan: We have started trials of sertraline 25mg PO qday, which we will increase to 50mg daily. Continue inpatient treatment on the BSU. Continued Medication Management: Start Medication Medications: Current Medications Acetaminophen (Tylenol Tab*) 650 mg PO Q4H PRN PRN Reason: MILD PAIN or TEMP > 100.4 Al Hydrox/Mg Hydrox/Simethicone (Maalox Plus*) 30 ml PO Q4H PRN PRN Reason: INDIGESTION Folic Acid (Folvite Tab*) 1 mg PO DAILY [facility] Last Admin: 02/05/19 09:11 Dose: 1 mg Multivitamins/Minerals (Theragran/Minerals Tab*) 1 tab PO DAILY [facility] Last Admin: 02/05/19 09:11 Dose: 1 tab Sertraline HCl (Zoloft*) 25 mg PO DAILY [facility] Last Admin: 02/05/19 09:10 Dose: 25 mg Thiamine HCl (Vitamin B-1 Tab*) 100 mg PO DAILY [facility] Last Admin: 02/05/19 09:11 Dose: 100 mg - Discharge Plan Discharge Plan: Inpatient Hospitalization
[2019-02-06] MEDS: Folic Acid TAB* 1 MG PO SCH (09:14)
[2019-02-06] MEDS: Sertraline* 25 MG TAB PO SCH (09:15)
[2019-02-06] MEDS: Multivitamins/Minerals TAB PO SCH (09:16)
[2019-02-06] MEDS: Thiamine TAB* 100 MG TAB PO SCH (09:16)
--- NOTE | 2019-02-06 14:37 | PN ---
Subjective - Subjective Date of Service: 02/06/19 Service Type: [id number] Hosp care 15 min low complexity Subjective: Nick is seen for weekend follow up. He is in good spirits and is playing cards with several visitors in the day area as I approach. He complains of "fuzziness " and sinus pressure, which he attributes to sertraline, but otherwise feels fine and continues to deny SI. He is hopeful for discharge the coming Friday ( 02/08). Objective - General Observations Appearance: Neat, Well Groomed Appears Stated Age: Yes Stature: WNL Posture: WNL Eye Contact: Average Behavior/Activity: WNL - Interaction Observations Attitude Towards Examiner: Cooperative Stated Mood: Euthymic Affect: Full Speech Pattern/Tone: Clear, Appropriate, Normal Volume Thought Process: Coherent Perception: WNL Thought Content: WNL Hallucination Type: None Delusion Type: None - Cognitive Function Orientation: A&O x 4 Level of Consciousness: Awake, Alert, Appropriate Cognition: WNL Estimated Intelligence: Normal Insight: WNL Judgment Within Normal Limits: Yes - Medication Compliance Cooperative with Inpatient Medication Regimen: Yes - Group Participation Participates in Group Activities: Yes Assessment - Assessment Merits Inpatient Hospitalization: Consolid[facility] Improvements, Pending Safe DC Plan Inpatient DSM-V Dx: F10.24 Clinical Impression: 38 y.o. , white male with a history of alcohol dependence and two previous BSU admissions for alcohol induced depressive disorder transferred from the Hospitalist service following medical stabilization of an intentional, suicidal overdose on alcohol and 100 capsules of 25mg strength OTC Benadryl. BSU: Problem List - Patient Problems (1) Alcohol-induced depressive disorder with moderate or severe use disorder Current Visit: Yes Status: Acute Priority: High Code(s): F10.24 - ALCOHOL DEPENDENCE WITH ALCOHOL-INDUCED MOOD DISORDER; F32.89 - OTHER SPECIFIED DEPRESSIVE EPISODES SNOMED Code(s): 55648812 Plan - Plan Treatment Plan: We have started a trial of sertraline 50mg PO qday. Continue inpatient treatment on the BSU. Target discharge for Friday (02/08). Continued Medication Management: Start Medication Medications: Current Medications Acetaminophen (Tylenol Tab*) 650 mg PO Q4H PRN PRN Reason: MILD PAIN or TEMP > 100.4 Al Hydrox/Mg Hydrox/Simethicone (Maalox Plus*) 30 ml PO Q4H PRN PRN Reason: INDIGESTION Folic Acid (Folvite Tab*) 1 mg PO DAILY [facility] Last Admin: 02/06/19 09:14 Dose: 1 mg Multivitamins/Minerals (Theragran/Minerals Tab*) 1 tab PO DAILY [facility] Last Admin: 02/06/19 09:16 Dose: 1 tab Sertraline HCl (Zoloft*) 50 mg PO DAILY [facility] Last Admin: 02/06/19 09:15 Dose: 50 mg Thiamine HCl (Vitamin B-1 Tab*) 100 mg PO DAILY [facility] Last Admin: 02/06/19 09:16 Dose: 100 mg - Discharge Plan Discharge Plan: Inpatient Hospitalization
[2019-02-07] MEDS: Folic Acid TAB* 1 MG PO SCH (10:20)
[2019-02-07] MEDS: Sertraline* 25 MG TAB PO SCH (10:20)
[2019-02-07] MEDS: Multivitamins/Minerals TAB PO SCH (10:20)
[2019-02-07] MEDS: Thiamine TAB* 100 MG TAB PO SCH (10:20)
[2019-02-08] MEDS: Thiamine TAB* 100 MG TAB PO SCH (08:19)
[2019-02-08] MEDS: Folic Acid TAB* 1 MG PO SCH (08:19)
[2019-02-08] MEDS: Sertraline* 25 MG TAB PO SCH (08:19)
[2019-02-08] MEDS: Multivitamins/Minerals TAB PO SCH (08:19)
[2019-02-08 08:30] VITALS: BP 117/80
--- NOTE | 2019-02-08 12:38 | DS ---
DISCHARGE SUMMARY: DATE OF ADMISSION: 02/02/19 DATE OF DISCHARGE: 02/08/19 DISCHARGE DIAGNOSES: As follows: [place] I: Alcohol-induced depressive disorder, alcohol use disorder, rule out unspecified anxiety disorder. [place] II: Deferred. CONDITION AT THE TIME OF DISCHARGE: Stable. Nick has steadfastly denied further suicidal ideations throughout his hospitalization both on the medical unit and on the behavioral science unit. He has been calm, cooperative, addressing his activities of daily living such as eating; drinking; bathing; and grooming all within normal limits. He has been safe on all checks. In addition, Nick has been participating well in milieu programing. He has been social, accepting many visits from friends and his significant other. He has done well here and is appropriately requesting discharge to the outpatient environment. We see no barriers at this time that would prevent Nick from receiving definitive treatment in the outpatient environment. MENTAL STATUS EXAMINATION: At the time of discharge, the patient is a middle- aged white male with a clean haircut, somewhat stubbly unshaven mukherjee, well dressed in a koo sweater and sweatpants. He is calm, cooperative, expressive, easy to establish a rapport with, makes good eye contact. Speech has a normal rate, tone, and volume. Mood is euthymic with a full affect. Thought process is linear and goal directed. Thought content is significant for his desire to be discharged. He is denying suicidal or homicidal ideations. He denies auditory or visual hallucinations. Insight and judgment are within normal limits as reflected by his interest in receiving continued substance abuse and mental health treatment in the community after discharge. Cognitively, he is awake and alert with what would appear to be an average intellect. DISCHARGE INSTRUCTIONS TO THE PATIENT: As follows: A. Medications: The patient is taking sertraline 50 mg p.o. daily. B. Diet is regular. C. Activities: As tolerated. The patient is a nonsmoker. There are no laboratory or diagnostic studies pending at the time of discharge. D. Followup care: The patient will follow up at the [facility] here in [place], [place] within 1 week of discharge. E. Substance abuse followup: The patient will follow up at the [facility] on [facility] here in [place] within 1 week of discharge. F. Disposition: The patient is returning to his apartment here in [place]. HOSPITAL COURSE: Part A: Reason for Admission: The patient is a 38-year-old white male with a history of significant alcohol dependence as well as 2 separate psychiatric admissions for alcohol-induced mood disorder who is currently hospitalized on the ICU following an intentional suicidal overdose on approximately 100 capsules of 25 mg mggr-ing-lcctbkq Benadryl in addition to drinking a large amount of alcohol. 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 He also indicates that he has been having interpersonal and relational difficulties with his girlfriend of the last 2-1/2 years whose name is Joseline, who is currently present during the time of his evaluation in his ICU room. The patient indicates that the night prior to admission he had stopped taking all phone calls and posted some photographs on social media of the Benadryl pill bottle with a cryptic message to the effect that he would end his own life. Friends were concerned enough to call the police, who found him incapacitated in his apartment and brought him immediately to the emergency room. Upon presentation, he was obtunded and difficult to arouse and could not provide history. I understand that he continued to be somewhat confused through most of his initial night, but was much more clear when I first evaluated him in intensive care. As I entered his room, I asked to speak with him privately and he indicated that prior to taking the overdose, he was feeling down about his life and said, "I just wanted to go to sleep, like forever." He indicates that he has difficulty trusting his girlfriend and often feels like she is cheating on him even though he has no evidence of this. He had been receiving outpatient services at [facility] until approximately a year ago, and his most recent alcohol consumption patterns amount to drinking a 6-pack of beer 2 to 3 times per week. He does endorse depression and anxiety and states that prior to the overdose he had reached out to the [facility] here in [place] and was placed on a waiting list for services. He is open to the idea of anxiolytic medication as well as some type of medication to curb his cravings for alcohol. When I spoke with Joseline, she corroborated his history and indicated that his mistrust of her was limited to their relationship and she had not observed paranoia from other areas of his life. The patient was willing to get treatment and was open to both behavioral health as well as substance abuse interventions. Part B: Psychiatric Treatment Rendered: The patient was transferred from the medical service to the behavioral science unit on 02/05/19. We had already started him on trials of low-dose sertraline 25 mg and naltrexone 50 mg daily to reduce drinking behaviors. Unfortunately, he did not tolerate naltrexone and this was discontinued. On the other hand, he did well with the sertraline and it was increased to 50 mg daily, which is the dose at his time of discharge. Nick was cooperative with milieu treatment, received many visitors in the form of friends and his girlfriend. He indicated that he has found work for himself, which should improve his financial situation. He is open both to mental health as well as substance abuse followup in the community. At the time of discharge, he is thoroughly denying any thoughts of self-harm and we do not see any further benefit to inpatient care. Nick is being discharged today to his home in [place] and we certainly wish him the best for safe, healthy and sober future. [id number]/[facility]PS #: [id number] LAUREEN
== END 2019-02-08 14:38 | disposition home or self-care (01) | DRG 812 ==
LOC: ED 12:19 → ICU 15:35 → MED 02-03 15:58 → BSU 02-05 10:00
PROVIDERS: ADMIT Internal Medicine Critical Care Medicine; ATTEND Psychiatry & Neurology Psychiatry
PROC: 0T9B70Z Drainage of Bladder with Drainage Device, Via Natural or Artificial Opening (ICD-10-PCS; principal; 2019-02-02)
DX: T45.0X2A Poisoning by antiallergic and antiemetic drugs, intentional self-harm, initial encounter (principal); F10.24 Alcohol dependence with alcohol-induced mood disorder; T51.0X2A Toxic effect of ethanol, intentional self-harm, initial encounter; F41.9 Anxiety disorder, unspecified; R33.9 Retention of urine, unspecified; F17.200 Nicotine dependence, unspecified, uncomplicated; Y90.8 Blood alcohol level of 240 mg/100 ml or more; Z28.21 Immunization not carried out because of patient refusal; Y92.9 Unspecified place or not applicable
CPT/HCPCS: 36415; 80048; 80053; 80061; 80307; 80320; 80329; 81003; 81015; 82550; 82803; 83036; 83735; 84100; 84443; 85025; 87086; 87641; 93005; 99222; 99231; 99238; 99285; A9270-GY; G0480; J2060; J3411; J3475

== ENCOUNTER 2019-05-07 09:41 | Day surgery (SDC) | payer OTHER ==
--- NOTE | 2019-04-28 09:53 | HP ---
PREOPERATIVE HISTORY AND PHYSICAL: DATE OF SURGERY/ADMISSION: 05/07/19 [facility] DATE OF OFFICE VISIT/ENCOUNTER: 04/26/19 ATTENDING SURGEON: Giulia Jon MD * (DICTATED BY PRICILLA GUILLEN) PROCEDURE: Excision mass, right index finger. HISTORY OF PRESENT ILLNESS: This is a 38-year-old male who complains of a lump on the dorsal aspect of his right index finger; it has been present for about a year. He thinks over time it got a bit bigger, but it has stabilized in size. It is not especially painful. It bothers him when he bumps it. 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 He denies any injury. He denies any associated numbness or tingling. He would like to have the mass removed. PAST MEDICAL HISTORY: 1. Anxiety/depression. 2. History of alcoholism. The patient is a recovering alcoholic. He has not had any alcohol for the past 2 to 3 months. 3. History of DVT approximately 4 years ago after ankle fracture. PAST SURGICAL HISTORY: Hernia repair. CURRENT MEDICATIONS: 1. Disulfiram 250 mg daily. 2. Multivitamin 1 tab daily. 3. Sertraline HCl 50 mg daily. 4. Thiamine HCl 100 mg daily. ALLERGIES: No known drug allergies. FAMILY MEDICAL HISTORY: Noncontributory. 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 He is a current smoker , approximately half a pack per day for the past 15 years. He smokes marijuana on occasion. He denies alcohol use at this time. REVIEW OF SYSTEMS: Negative for general, cephalic, cardiovascular, respiratory , GI, , other musculoskeletal, integumentary, endocrine, neurologic, and hematologic symptoms. Infectious Disease: Negative for MRSA, hepatitis C, HIV. PHYSICAL EXAMINATION GENERAL: Well-developed, well-nourished 38-year-old male, in no acute distress. VITAL SIGNS: Height 6 feet tall, weight 200 pounds, pulse rate 100, blood pressure 132/80. HEENT: Normocephalic and atraumatic. Pupils are equal, round, and reactive to light and accommodation. Extraocular movements are intact. Throat is clear. NECK: Supple. No palpable lymph nodes. PULMONARY: Lungs are clear to auscultation bilaterally. No wheezes, rales, or rhonchi. CARDIOVASCULAR: Regular rate and rhythm. S1 and S2. No murmurs, rubs, or gallops. No edema. ABDOMEN: Positive bowel sounds. Soft and nontender. NEUROLOGIC: Alert and oriented x3. Cranial nerves II through XII are intact. Sensation is intact to light touch. MUSCULOSKELETAL: On exam of his right index finger, he has a cystic mass on the dorsal aspect between the PIP and the DIP joints. It is minimally tender to palpation. He has full range of motion of the finger. He can extend the finger against resistance with good strength and make a full fist. Skin is intact. Neurovascular function is intact. IMAGING STUDIES: X-rays AP, lateral, and oblique of the right index finger were normal. IMPRESSION: Cystic mass, right hand index finger. PLAN/RECOMMENDATIONS: The patient is scheduled to undergo an excision mass right index finger with Dr. Jon on 05/07/19. He will return to the office 10 days postop for followup and suture removal. He will plan on using over-the- counter ibuprofen and/or Tylenol for postoperative pain management. PRICILLA GUILLEN [id number]/[facility] #: [id number] MTDLeila
[~2019-05-07 09:41] MED LIST: Acetaminophen TAB* 325 MG ONE; Acetaminophen TAB* 325 MG PO ONE; Buffered Lidocaine 1% SYRIN* 1 ML/SYRINGE INTRADERM ONE; Lactated Ringers 1000 ML Bag* 1,000 ML IV SCH
[2019-05-07] MEDS ORDERED: Lidocaine 1% INJ* 10 MG/ML 30 ML SDV ONE (09:56)
[2019-05-07 11:03] VITALS: BP 117/95
--- NOTE | 2019-05-07 22:22 | OP ---
DATE OF OPERATION: 05/07/19 [facility] DATE OF : 78 SURGEON: Giulia Jon MD EXECUTIVE ASSISTANT TO GENERAL COUNSEL: PRICILLA Slater ANESTHESIA: Local. PRE-OP DIAGNOSIS: Right index finger mass. POST-OP DIAGNOSIS: Right index finger mass. OPERATIVE PROCEDURE: Remove right index finger mass. INDICATIONS FOR PROCEDURE: Nick is a 38-year-old male who has an enlarging mass on the dorsal aspect of his right index finger, he presents for removal. ESTIMATED BLOOD LOSS: Zero. TOURNIQUET TIME: About 15 minutes. DESCRIPTION OF PROCEDURE: The patient was brought to the operating room, was given a digital block with 10 cc of 1% plain lidocaine. A Tourni-Cot was placed on his finger and was left in place for the duration of the procedure. A T-shaped incision was made centered over the mass and the skin edges were carefully dissected off of the mass. There was some what appeared to be purulent drainage and this was cultured. Mass was then removed. There was no other sign of infection. The extensor tendon was left intact, but was incised on its edge and underlying stalk from the mass was removed with the rongeur. The wound was irrigated and the skin edges reapproximated with 4-0 nylon suture. The wound was dressed with Xeroform, 4x4, Webril, and Coban. The patient tolerated the procedure well and was brought to the recovery room in good condition. [id number]/[facility] #: [id number] MTDD
== END 2019-05-07 11:05 | disposition home or self-care (01) ==
LOC: OREAST 09:41
PROVIDERS: ATTEND Orthopaedic Surgery
DX: M67.441 Ganglion, right hand (principal); F41.8 Other specified anxiety disorders; F10.21 Alcohol dependence, in remission; F17.210 Nicotine dependence, cigarettes, uncomplicated; Z86.718 Personal history of other venous thrombosis and embolism
CPT/HCPCS: 87070; 87073; 87205; 88305; A9270-GY